=== PATIENT | female | born 1965 | race Caucasian/White ===

== ENCOUNTER 2016-10-30 19:26 | Emergency (ER) | payer BC, OTHER ==
[~2016-10-30] VITALS: Ht 160 cm; Wt 110.0 kg
[2016-10-30 20:00] VITALS: BP 124/64
[2016-10-30 20:52] LABS: BASOPHILS % 1.3 % (0.0-2.0); HEMATOCRIT. 41.3 % (36.0-48.0); HEMOGLOBIN. 14.1 g/dL (12.0-16.0); LYMPHOCYTES % 38.6 % (20.0-50.0); MEAN CORPUSCULAR HEMOGLOBIN 31.8 pg (28.0-32.0); MEAN CORPUSCULAR HGB CONC 34.1 g/dL (31.0-37.0); MEAN CORPUSCULAR VOLUME 93.1 fL (81.0-99.0); MONOCYTES % 5.6 % (2.0-8.0); NEUTROPHILS % 52.5 % (40.0-76.0); PLATELET 285 x1000/uL (130-400); RED BLOOD CELL COUNT 4.43 mill/uL (4.2-5.4); RED CELL DISTRIBUTION WIDTH 12.9 % (11.6-14.6); WHITE BLOOD COUNT 8.9 x1000/uL (4.5-11.0)
[2016-10-30 20:56] LABS: CHLORIDE 104 mEq/L (98-107)
[2016-10-30 20:59] LABS: INR 0.9; PROTHROMBIN TIME 9.7 sec
[2016-10-30 21:07] LABS: ALANINE AMINOTRANSFERASE 50 IU/L (13-61); ALBUMIN 3.7 g/dL (3.4-5.0); ANION GAP 16; CARBON DIOXIDE 26 mEq/L (21-32); INDEX HEMOLYSI 2 (1-3); INDEX ICTERIC 1 (1-4); INDEX LIPEMIC 1 (1-3); NT PRO B-TYPE NATRIURETIC PEP 11 pg/mL (5-125); TROPONIN I < 0.02 ng/mL (0.00-0.04); UREA NITROGEN BLOOD 17 mg/dL (7-21); eGFR > 60 mL/min (>60)
== END 2016-10-30 21:26 | disposition home or self-care (01) ==
LOC: ER 19:32
DX: R60.9 Edema, unspecified (principal); E78.00 Pure hypercholesterolemia, unspecified; R07.9 Chest pain, unspecified
CPT/HCPCS: 36415; 71010; 80053; 83880; 84484; 85025; 85610; 93005; 93970; 99285; Z7610